=== PATIENT | male | born 2000 | race Caucasian/White ===

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

== ENCOUNTER → 2022-08-01 | Outpatient (CLI) | payer OTHER | LOC: M LABSMTC 10:26 | PROVIDERS: ATTEND Anesthesiology | DX: Z20.828 Contact with and (suspected) exposure to other viral communicable diseases (principal); Z11.52 Encounter for screening for COVID-19 ==

== ENCOUNTER 2022-08-04 06:14 | Day surgery (SDC) | payer OTHER ==
[~2022-08-04] VITALS: Ht 172.7 cm; Wt 85.7 kg
[2022-08-04] MEDS ORDERED: CEPH500C PO (06:28)
[2022-08-04] MEDS ORDERED: LR 1,000 ML IV SCH ×2 (06:35→09:10)
[2022-08-04] MEDS ORDERED: LIDOCAINE 2% 100MG/5ML SDV (FOR ANES.) As Ordered ONE (06:51)
[2022-08-04] MEDS ORDERED: propofoL 200 MG/20 ML VIAL As Ordered ONE (06:51)
[2022-08-04] MEDS ORDERED: ONDANSETRON 4MG 2ML VIAL As Ordered ONE (06:54)
[2022-08-04] MEDS ORDERED: MIDAZOLAM INJ 2MG/2ML VIAL As Ordered ONE (06:56)
[2022-08-04] MEDS ORDERED: fentaNYL 100 MCG/2 ML INJECTION As Ordered ONE (06:56)
[2022-08-04] MEDS ORDERED: CHLOROPROCAINE PRES. FREE 3% 20ML VIAL As Ordered ONE (08:07)
[2022-08-04] MEDS ORDERED: ACETAMINOPHEN 1000MG 100ML IV BAG As Ordered ONE (08:43)
[2022-08-04] MEDS ORDERED: KETOROLAC 60MG 2ML VIAL As Ordered ONE (08:56)
[2022-08-04] MEDS ORDERED: fentaNYL 100 MCG/2 ML INJECTION IV PRN (09:10)
[2022-08-04] MEDS ORDERED: HYDROMORPHONE HCL 0.5 MG/ 0.5 ML SYRINGE IV PRN (09:10)
[2022-08-04] MEDS ORDERED: oxyCODONE 5MG TAB PO PRN (09:10)
[2022-08-04] MEDS ORDERED: ONDANSETRON 4MG 2ML VIAL IV PRN (09:10)
[2022-08-04 10:40] VITALS: BP 122/66
[2022-08-04] MEDS ORDERED: NORCO, ANEXSIA 5/325MG TABLET (HYDROcodone/ACETAMINOPHEN) PO PRN (11:15)
== END 2022-08-04 10:47 | disposition home or self-care (01) ==
LOC: M SDC 06:14
PROVIDERS: ATTEND Surgery
DX: L05.91 Pilonidal cyst without abscess (principal); J45.909 Unspecified asthma, uncomplicated
CPT/HCPCS: 11770; 88304; J1100; J2405